=== PATIENT | male | born 1960 | race Caucasian/White ===

== ENCOUNTER 2019-07-29 13:07 | Emergency (ER) | payer MEDICAID ==
[~2019-07-29] VITALS: Ht 165.1 cm; Wt 80.0 kg
[2019-07-29] MEDS ORDERED: KETOROLAC 30MG/ML VIAL IM ONE (14:30)
[2019-07-29 14:46] VITALS: BP 125/66
== END 2019-07-29 17:01 | disposition home or self-care (01) ==
LOC: ER 13:07
DX: M25.532 Pain in left wrist (principal); M25.531 Pain in right wrist; M79.602 Pain in left arm; M79.601 Pain in right arm; W01.0XXA Fall on same level from slipping, tripping and stumbling without subsequent striking against object, initial encounter; Y93.89 Activity, other specified; Y92.89 Other specified places as the place of occurrence of the external cause; Y99.8 Other external cause status
CPT/HCPCS: 73030; 73080; 73110; 96372; 99283; J1885